=== PATIENT | male | born 1960 | race Two or more races ===

== ENCOUNTER 2018-08-04 07:44 | Day surgery (SDC) | payer BC ==
[2018-08-04] MEDS ORDERED: LIDOCAINE 2% MDV (20MG/ML) 20ML VIAL IV ONE (07:45)
[2018-08-04] MEDS ORDERED: MIDAZOLAM HCL 2MG/2ML VIAL IV ONE (07:45)
[2018-08-04] MEDS ORDERED: PROPOFOL 10 MG/ML VIAL IV ONE (07:45)
--- NOTE | 2018-08-05 08:50 | Operative Note ---
OPERATION: COLONOSCOPY with cold snare and cold forceps polypectomies. PREOPERATIVE DIAGNOSIS: Personal history of polyps. POSTOPERATIVE DIAGNOSIS: Polyps. PREPARATION QUALITY: Good. ESTIMATED BLOOD LOSS: Minimum. SPECIMENS: Sigmoid polyps x2, ascending polyps x1, descending colon polyp x1. PROCEDURE: After informed consent was obtained from the patient, he was placed in the left lateral decubitus position in the endoscopy suite, sedated and monitored by the department of anesthesia. Digital rectal exam was unremarkable. A well-lubricated [id number] colonoscope was inserted into the rectum and advanced to the sigmoid colon where a diminutive polyp was identified and removed with a cold forceps. The endoscope was then advanced to the cecum. The cecum and cecal bulb were inspected several times. The ileocecal valve and appendiceal orifice were unremarkable. The ascending colon revealed a diminutive polyp removed with a cold forceps. The remainder of the ascending colon and transverse colon were unrevealing. In the descending colon, there was a 5 mm sessile polyp removed with a cold snare. There was a 5-6 mm sessile polyp in the sigmoid colon removed with a cold snare. Minimal bleeding was noted at all sites. Polyps were retrieved without incident. The rectum was unremarkable in forward and J-turn views. The endoscope was straightened, the rectal ampulla deflated, and the endoscope was removed. RECOMMENDATIONS: The patient should resume his medications and diet. He will require repeat exam in 3-5 years pending tissue histology. As always, thank you for allowing me to participate in the healthcare of your patients. CC: Tamara Rolle MD [facility] & CLINICGladis
== END 2018-08-04 10:25 | disposition home or self-care (01) ==
LOC: HOP 07:44
PROVIDERS: ATTEND Internal Medicine Gastroenterology
DX: Z12.11 Encounter for screening for malignant neoplasm of colon (principal); Z86.010 Personal history of colon polyps; K63.5 Polyp of colon; D12.2 Benign neoplasm of ascending colon; D12.5 Benign neoplasm of sigmoid colon; E78.00 Pure hypercholesterolemia, unspecified; E11.9 Type 2 diabetes mellitus without complications